=== PATIENT | male | born 1970 | race Caucasian/White ===

== ENCOUNTER 2024-05-27 13:12 | Inpatient (IN) | payer OTHER ==
[2024-05-27 14:21] VITALS: BMI 28.8
[2024-05-27] MEDS ORDERED: MAG HYDROX/AL HYDROX/SIMETH 30 ML UNIT-DOSE CUP PO PRN (16:34)
[2024-05-27] MEDS ORDERED: MAGNESIUM HYDROX 2400MG/30ML ORAL SUSPENSION 30 ML CUP PO PRN (16:34)
[2024-05-27] MEDS ORDERED: BENZOCAINE/MENTHOL (CHLORASEPTIC ) LOZENGE MM PRN (16:34)
[2024-05-27] MEDS ORDERED: guaiFENesin 600 MG TABLET.ER (FP) PO PRN (16:34)
[2024-05-27] MEDS ORDERED: LOPERAMIDE HCL 2 MG CAPSULE PO PRN (16:34)
[2024-05-27] MEDS ORDERED: POLYETHYLENE GLYCOL (HEALTHYLAX) 3350 17 GM PACKET PO PRN (16:34)
[2024-05-27] MEDS ORDERED: IBUPROFEN 400 MG TABLET (FP) PO PRN (16:34)
[2024-05-27] MEDS ORDERED: BENZONATATE 200 MG CAPSULE PO PRN (16:34)
[2024-05-27] MEDS ORDERED: IBUPROFEN 600 MG TABLET (FP) PO ONE (17:51)
[2024-05-27] MEDS: IBUPROFEN 600 MG TABLET (FP) PO PRN (17:56)
[2024-05-27] MEDS: LIDOCAINE 5% TOPICAL PATCH TP SCH (18:30)
[2024-05-27] MEDS: METOPROLOL TARTRATE 50 MG TABLET (FP) PO ONE (18:53)
[2024-05-27] MEDS: ACETAMINOPHEN 325 MG TABLET (FP) PO PRN (21:26)
[2024-05-27] MEDS: MELATONIN 5 MG TABLETS PO SCH (21:27)
[2024-05-27] MEDS: THIAMINE 100 MG TABLET PO SCH (21:27)
[2024-05-27] MEDS: LIDOCAINE PATCH REMOVAL MC SCH (21:28)
[2024-05-28] MEDS: metFORMIN HCL 500 MG TABLET (FP) PO SCH (06:03)
[2024-05-28] MEDS: PRENATAL VITAMINS W/ FOLIC ACID TABLET (FP) PO SCH (09:36)
[2024-05-28 10:22] LABS: HEMOGLOBIN 10.5 GM/dL (11.7-16.9); MCH 28.6 pg (25.7-33.7); MCHC 33.8 g/dl (32.0-35.9); MEAN CELL VOLUME 84.5 fl (80-96); MEAN PLT VOLUME 8.1 fl (7.5-11.1); PLATELET COUNT 448 10^3/uL (134-434); RBC 3.67 M/mm3 (4.00-5.60); RDW 12.8 % (11.9-15.9); WHITE BLOOD COUNT 7.9 K/mm3 (4.0-10.0)
[2024-05-28 10:27] LABS: POTASSIUM 4.1 mmol/L (3.5-5.1)
[2024-05-28 10:32] LABS: CALCIUM 8.8 mg/dL (8.5-10.1)
[2024-05-28 10:33] LABS: BLOOD UREA NITROGEN 8.9 mg/dL (7-18)
[2024-05-28 10:36] LABS: CREATININE 0.7 mg/dL (0.55-1.3)
[2024-05-28 10:38] LABS: BILIRUBIN,TOTAL 0.5 mg/dL (0.2-1); TOT PROT 6.4 g/dl (6.4-8.2)
[2024-05-28 13:24] LABS: PH,URINE 6.5 (5.0-8.0); URINE APPEARANCE CLEAR; URINE BILIRUBIN NEGATIVE (NEGATIVE); URINE COLOR YELLOW; URINE GLUCOSE (UA) 3+ (NEGATIVE); URINE KETONE NEGATIVE (NEGATIVE); URINE LEUK ESTERASE NEGATIVE (NEGATIVE); URINE NITRITE NEGATIVE (NEGATIVE); URINE PROTEIN NEGATIVE (NEGATIVE); URINE UROBILINOGEN 0.2 mg/dL (0.2-1.0)
[2024-05-28 13:41] LABS: SYPHILIS W/ RPR CONF NON-REACTIVE (NONREACTIVE)
[2024-05-28] MEDS: LISINOPRIL 5 MG TABLET PO SCH (16:08)
[2024-05-28] MEDS: hydrOXYzine PAMOATE 25 MG CAPSULE (FP) PO PRN (21:11)
[2024-05-28] MEDS: METOPROLOL TARTRATE 25 MG TABLET (FP) PO ONE (21:49)
[2024-05-30] MEDS: LISINOPRIL 10 MG TABLET PO SCH (10:20)
[2024-05-30] MEDS: METHOCARBAMOL 500 MG TABLET PO PRN (10:20)
[2024-05-30] MEDS: cloNIDine HCL 0.1 MG TABLET PO ONE (22:12)
[2024-05-31 09:12] VITALS: BP 109/104; PULSE 114; RESP 16; TEMP 98.4
== END 2024-05-31 09:07 | disposition left against medical advice (07) | DRG 770 ==
LOC: YASAS 13:12 → Y3NR 17:19 → Y3E 05-28 11:08
PROVIDERS: ADMIT Psychiatry & Neurology Pain Medicine; ATTEND Psychiatry & Neurology Pain Medicine
PROC: HZ42ZZZ Group Counseling for Substance Abuse Treatment, Cognitive-Behavioral (ICD-10-PCS; principal; 2024-05-27)
DX: F16.20 Hallucinogen dependence, uncomplicated (principal); F10.20 Alcohol dependence, uncomplicated; I10 Essential (primary) hypertension; E78.5 Hyperlipidemia, unspecified; E11.9 Type 2 diabetes mellitus without complications; Z79.84 Long term (current) use of oral hypoglycemic drugs; Z87.828 Personal history of other (healed) physical injury and trauma; Z59.01 Sheltered homelessness
CPT/HCPCS: 36415; 71045-TC-FY; 80053; 80305; 81003; 82962; 85027; 86780; 86803; 87811; 93005; 93010